=== PATIENT | male | born 1970 | race Caucasian/White ===

== ENCOUNTER 2016-05-19 17:27 | Emergency (ER) | payer BC ==
[~2016-05-19] VITALS: Ht 167.6 cm; Wt 95.2 kg
[2016-05-19] MEDS ORDERED: FLEXERIL10 MG PO (19:08)
[2016-05-19] MEDS ORDERED: PREDNISONE10 MG PO (19:08)
[2016-05-19] MEDS ORDERED: LORTAB 5-325 M1 EACH PO (19:08)
[2016-05-19] MEDS ORDERED: LIDODERM 5% P1 PATCH TD (19:08)
[2016-05-19 19:50] VITALS: BP 133/89
== END 2016-05-19 19:52 | disposition home or self-care (01) ==
LOC: EME 17:27
DX: M54.42 Lumbago with sciatica, left side (principal); M46.1 Sacroiliitis, not elsewhere classified; J45.909 Unspecified asthma, uncomplicated; F17.200 Nicotine dependence, unspecified, uncomplicated
CPT/HCPCS: 99281; 99284; J3010; J7512

== ENCOUNTER 2016-05-31 18:59 | Emergency (ER) | payer BC ==
[~2016-05-31] VITALS: Ht 167.6 cm; Wt 93.6 kg
[~2016-05-31 18:59] MED LIST: FLEXERIL10 MG PO; LIDODERM 5% P1 PATCH TD; LORTAB 5-325 M1 EACH PO; PREDNISONE10 MG PO
[2016-05-31 20:45] LABS: ADD MIUA? YES; BILIRUBIN NEGATIVE; BLOOD LARGE; COLOR YELLOW ((YELLOW)); GLUCOSE (STRIP) NEGATIVE; KETONES NEGATIVE; LEUKOCYTES NEGATIVE; NITRITE NEGATIVE; PROTEIN (STRIP) NEGATIVE; SPECIFIC GRAVITY 1.009 (1.000-1.030); UROBILINOGEN 0.2 MG/DL (0.2-1.0)
[2016-05-31 20:53] LABS: BACTERIA RARE /HPF; EPITHELIAL CELLS NONE SEEN /HPF; HYALINE CASTS 0-5 /LPF; MUCUS TRACE /LPF; RED BLOOD CELLS TNTC /HPF (0-5); UCUL ADDED? NO; WHITE BLOOD CELLS 0-5 /HPF (0-5)
[2016-05-31] MEDS ORDERED: FLOMAX0.4 MG PO (21:33)
[2016-05-31 22:12] VITALS: BP 152/80
== END 2016-05-31 22:12 | disposition home or self-care (01) ==
LOC: EME 18:59
PROVIDERS: Emergency Medicine
DX: R33.9 Retention of urine, unspecified (principal)
CPT/HCPCS: 81003; 99281; 99284